=== PATIENT | male | born 1990 | race Hispanic/Latino ===

== ENCOUNTER 2021-05-07 17:31 | Emergency (ER) | payer SELFPAY ==
[~2021-05-07] VITALS: Ht 182.9 cm; Wt 70.0 kg
[2021-05-07] MEDS ORDERED: GENTAMICIN SULF5 ML OD (18:21)
[2021-05-07 18:29] VITALS: BP 91/56
== END 2021-05-07 18:41 | disposition home or self-care (01) | DRG 125 ==
LOC: ED 17:31
DX: H11.001 Unspecified pterygium of right eye (principal)